=== PATIENT | female | born 1965 | race Caucasian/White ===

== ENCOUNTER → 2017-07-19 | Outpatient (CLI) | payer BC ==
--- NOTE | 2017-07-19 11:21 | KCIC ---
MR of the right shoulder Indication: Right shoulder pain after a fall March 2017. Technique: Standard multiplanar sequences are obtained. Findings: Acromioclavicular joint:Intact. Rotator cuff: No evidence of rotator cuff tear. Trace fluid in the subdeltoid bursa. Glenohumeral cartilage: No acute defect or advanced DJD. Fluid: Trace joint fluid. Labrum: Tear of the posterosuperior labrum. Incidentally noted absent anterosuperior labrum and thick cordlike middle glenohumeral ligament, compatible with a Sylvester complex, normal variant. The axillary recess is mildly thickened and ill-defined, with mild edematous signal on T2-weighted images. Biceps tendon: Intact Bones: No lesion or acute fracture. Soft tissue: No acute findings. Impression: 1. Posterosuperior labral tear. 2. Mild edematous signal and ill-definition of the axillary recess, is nonspecific but can be associated with adhesive capsulitis or inferior glenohumeral ligament sprain. Electronically signed by: Amrit Lewis MD (07/19/2017 11:17 AM) [id number]
== END | disposition home or self-care (01) ==
LOC: KCIC MRI 08:23
PROVIDERS: ATTEND Orthopaedic Surgery Sports Medicine
DX: S43.401D Unspecified sprain of right shoulder joint, subsequent encounter (principal); W19.XXXD Unspecified fall, subsequent encounter; R60.9 Edema, unspecified
CPT/HCPCS: 73221